=== PATIENT | female | born 1995 | race African-American/Black ===

== ENCOUNTER 2017-09-09 19:20 | Emergency (ER) | payer OTHER ==
[2017-09-09] MEDS ORDERED: Lidocaine 1% PF 5 ML VIAL ONE (20:25)
== END 2017-09-09 21:35 | disposition home or self-care (01) ==
LOC: ERS 19:20
DX: L02.415 Cutaneous abscess of right lower limb (principal); L03.116 Cellulitis of left lower limb; F41.9 Anxiety disorder, unspecified; F90.9 Attention-deficit hyperactivity disorder, unspecified type
CPT/HCPCS: 10060; 87070; 87077; 87186; 87205; J2001

== ENCOUNTER 2017-09-11 18:35 | Emergency (ER) | payer OTHER | END 2017-09-11 19:46 | disposition home or self-care (01) | LOC: ERS 18:35 | DX: Z48.817 Encounter for surgical aftercare following surgery on the skin and subcutaneous tissue (principal); F90.9 Attention-deficit hyperactivity disorder, unspecified type; F41.9 Anxiety disorder, unspecified | CPT/HCPCS: 99282 ==